=== PATIENT | female | born 1945 | race Caucasian/White ===

== ENCOUNTER 2018-06-22 09:06 | Day surgery (SDC) | payer MEDICARE, OTHER ==
[~2018-06-22 09:06] MED LIST: BUPIVACAINE HCL 0.75% INJ/PF (7.5 MG/1 ML) 10 ML SDV OD PRN; KETOROLAC TROMETHAMINE 0.45% 4 DROP/0.4 ML DROPERETTE OD PRN; LIDOCAINE 4% INJ/PF (40 MG/ML) 5 ML AMPUL OD PRN
[2018-06-22] MEDS ORDERED: EPINEPHRINE INJ/PF 1 MG/1 ML AMPULE ONE (09:12)
[2018-06-22] MEDS ORDERED: LIDOCAINE 1% INJ-PF (10 MG/ML) 30 ML SDV ONE (09:12)
[2018-06-22] MEDS ORDERED: CHONDR SU A NA/HYALUR INTRAOC KIT (SURGICARE) ONE (09:12)
[2018-06-22] MEDS: TETRACAINE HCL 0.5% OPH SOLN 4 ML OD PRN ×3 (09:57→10:30)
[2018-06-22] MEDS: CYCLOPENTOLATE 0.2%/PHENYLEPHRINE 1% OPH SOLN 2 ML OD PRN ×3 (09:58→10:18)
[2018-06-22] MEDS: TROPICAMIDE 1% OPH SOLN 3 ML OD PRN ×3 (09:58→10:18)
[2018-06-22] MEDS: BESIFLOXACIN HCL 0.6% OPH SUSP 5 ML BOTTLE OD PRN ×4 (09:58→10:49)
[2018-06-22] MEDS ORDERED: MIDAZOLAM 2 MG/2 ML INJ ONE (10:14)
--- NOTE | 2018-06-23 07:37 | [facility] OPERATIVE REPORT E ---
[facility] Operative Report NAME: ALEKS ALDRIDGE AGE: 73Y DATE OF SURGERY: 06/22/2018 ROOM: PREOPERATIVE DIAGNOSIS: CATARACT, RIGHT EYE. POSTOPERATIVE DIAGNOSIS: CATARACT, RIGHT EYE. OPERATION: Cataract extraction with insertion of an IOL of the right eye. SURGEON: OLYA ESCOBAR M.D. ANESTHESIA: Topical. PROCEDURE: After obtaining appropriate consent, the patient's right eye was prepped and draped in sterile fashion as well as the surgeon in a sterile manner and cataract surgery was started. First a paracentesis blade was used to make a side-port incision. Viscoelastic was used to inflate the anterior chamber. Next a 2.4 mm incision was made with a 2.4 mm blade, clear corneal temporally. A continuous capsulorrhexis was made using a cystotome and Utrata forceps. Following this hydrodissection was carried out to make the lens fully loose and mobile and it was rotated 90 degrees. Following this, a dlflxh-mqs-wwzgulb technique was used to phacoemulsify the lens with a CDE of 7.25. The remaining cortex was removed with irrigation/aspiration. Provisc was instilled into the capsular bag to inflate the bag. A SN60WF, 20.5 diopter lens was placed. The remaining viscoelastic material was removed with irrigation/aspiration. Following this, the incision was found to be watertight. Besivance was instilled into the eye and a protective shield was placed over the eye. The patient returned to the postoperative recovery in stable condition. DICTATING PHYSICIAN: OLYA ESCOBAR M.D. [id number] PHY#: [id number] 1939 ID: [id number] JOB#: [id number] ACCT: [id number] cc:OLYA ESCOBAR M.D. >
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
== END 2018-06-22 11:27 | disposition home or self-care (01) ==
LOC: SC 09:06
PROVIDERS: ATTEND Internal Medicine
DX: H25.813 Combined forms of age-related cataract, bilateral (principal); H16.223 Keratoconjunctivitis sicca, not specified as Sjogren's, bilateral; H43.813 Vitreous degeneration, bilateral; E03.9 Hypothyroidism, unspecified; I10 Essential (primary) hypertension; E78.00 Pure hypercholesterolemia, unspecified; Z88.0 Allergy status to penicillin; Z79.899 Other long term (current) drug therapy; D64.9 Anemia, unspecified
CPT/HCPCS: 66984; V2632; J2250; J3490 ×3; A9270; J0171

== ENCOUNTER 2018-07-18 09:24 | Day surgery (SDC) | payer MEDICARE, OTHER ==
[~2018-07-18 09:24] MED LIST changes: -BUPIVACAINE HCL 0.75% INJ/PF (7.5 MG/1 ML) 10 ML SDV OD PRN; +CHONDR SU A NA/HYALUR INTRAOC KIT (SURGICARE) ONE; +EPINEPHRINE INJ/PF 1 MG/1 ML AMPULE ONE; -KETOROLAC TROMETHAMINE 0.45% 4 DROP/0.4 ML DROPERETTE OD PRN; +KETOROLAC TROMETHAMINE 0.45% 4 DROP/0.4 ML DROPERETTE OS PRN; +LIDOCAINE 1% INJ-PF (10 MG/ML) 30 ML SDV ONE; -LIDOCAINE 4% INJ/PF (40 MG/ML) 5 ML AMPUL OD PRN; +MIDAZOLAM 2 MG/2 ML INJ ONE
[2018-07-18] MEDS: TROPICAMIDE 1% OPH SOLN 3 ML OS PRN ×3 (10:16→10:36)
[2018-07-18] MEDS: CYCLOPENTOLATE 0.2%/PHENYLEPHRINE 1% OPH SOLN 2 ML OS PRN ×3 (10:16→10:36)
[2018-07-18] MEDS: BESIFLOXACIN HCL 0.6% OPH SUSP 5 ML BOTTLE OS PRN ×3 (10:16→11:09)
[2018-07-18] MEDS: TETRACAINE HCL 0.5% OPH SOLN 4 ML OS PRN ×3 (10:17→10:59)
--- NOTE | 2018-07-19 08:12 | [facility] DISCHARGE SUMMARY E ---
[facility] Discharge Summary NAME: ALEKS ALDRIDGE AGE: 73Y ADMITTED: 07/18/2018 DISCHARGED: 07/18/2018 FINAL DIAGNOSIS: CATARACT, LEFT EYE. HISTORY/CLINIC COURSE: This is a 73-year-old female who underwent cataract extraction left eye without complication, woke up in postoperative recovery in stable condition. She underwent surgery because she was having difficulty seeing words on the television. She is to be on a regular diet. No bending at the waist, no heavy lifting. Patient should use the Besivance, Ilevro, and Durezol at 3 p.m. and 8 p.m., and sleep with a rigid shield. I will see her for 1 day postoperative tomorrow. DICTATING PHYSICIAN: OLYA ESCOBAR M.D. [id number] [facility]#: [id number] ID: [id number] JOB#: [id number] ACCT: [id number] cc:OLYA ESCOBAR M.D. >
--- NOTE | 2018-07-19 08:12 | [facility] OPERATIVE REPORT E ---
[facility] Operative Report NAME: ALEKS ALDRIDGE AGE: 73Y DATE OF SURGERY: 07/18/2018 ROOM: PREOPERATIVE DIAGNOSIS: CATARACT, LEFT EYE. POSTOPERATIVE DIAGNOSIS: CATARACT, LEFT EYE. OPERATION: Cataract extraction with insertion of an IOL of the left eye. SURGEON: OLYA ESCOBAR M.D. ANESTHESIA: Topical. PROCEDURE: After obtaining appropriate consent, the patient's left eye was prepped and draped in sterile fashion as well as the surgeon in a sterile manner and cataract surgery was started. First a paracentesis blade was used to make a side-port incision. Viscoelastic was used to inflate the anterior chamber. Next a 2.4 mm incision was made with a 2.4 mm blade, clear corneal temporally. A continuous capsulorrhexis was made using a cystotome and Utrata forceps. Following this hydrodissection was carried out to make the lens fully loose and mobile and it was rotated 90 degrees. Following this, a ccprnk-jah-cyetred technique was used to phacoemulsify the lens with a CDE of 3.78. The remaining cortex was removed with irrigation/aspiration. Provisc was instilled into the capsular bag to inflate the bag. A SN60WF, 20.0 diopter lens was placed. The remaining viscoelastic material was removed with irrigation/aspiration. Following this, the incision was found to be watertight. Besivance was instilled into the eye and a protective shield was placed over the eye. The patient returned to the postoperative recovery in stable condition. DICTATING PHYSICIAN: OLYA ESCOBAR M.D. [id number] PHY#: [id number] ID: [id number] JOB#: [id number] ACCT: [id number] cc:OLYA ESCOBAR M.D. >
== END 2018-07-18 12:12 | disposition home or self-care (01) ==
LOC: SC 09:24
PROVIDERS: ATTEND Internal Medicine
DX: H25.812 Combined forms of age-related cataract, left eye (principal); Z96.1 Presence of intraocular lens; I10 Essential (primary) hypertension; Z79.899 Other long term (current) drug therapy; E07.9 Disorder of thyroid, unspecified; Z88.0 Allergy status to penicillin
CPT/HCPCS: 66984; V2632; J2250; J3490 ×3; A9270; J0171; 142